=== PATIENT | female | born 1975 | race African-American/Black ===

== ENCOUNTER 2017-06-07 17:09 | Emergency (ER) | payer OTHER ==
[2017-06-07 18:05] LABS: BILIRUBIN,URINE NEGATIVE (NEG); CLARITY,URINE CLEAR; COLOR,URINE YELLOW; GLUCOSE,URINE >=1000 mg/dL (NEG); NITRITE,URINE NEGATIVE (NEG); PROTEIN,URINE 30 mg/dL (NEG-TRACE); UROBILINOGEN,URINE 0.2 mg/dL (0.2 mg/dL)
[2017-06-07 18:26] LABS: NEG OBC UR NEG; POS OBC UR POS; U PREG PATIENT NEGATIVE (NEG)
[2017-06-07 18:28] LABS: BACTERIA,URINE 0 /HPF (0-FEW); RBC,URINE 20-40 /HPF (0-2); SQUAMOUS EPITHELIAL CELL,UR FEW /LPF; WBC,URINE 0 /HPF (0-4)
[2017-06-07] MEDS: IV NORMAL SALINE 1000ML BAG 1,000 ML IV (19:09)
[2017-06-07] MEDS ORDERED: LIDOCAINE 1% PF 2 ML VIAL. (19:21)
[2017-06-07 19:27] LABS: NEG OBC SER NEG; POS OBC SER POS; PREG TEST PT QUAL NEGATIVE (NEG)
[2017-06-07 19:28] LABS: ANION GAP 10 (6-14); BLOOD UREA NITROGEN 9 mg/dL (7-20); BUN/CREATININE RATIO 11 (6-20); CALCIUM 8.5 mg/dL (8.5-10.1); CARBON DIOXIDE 28 mmol/L (21-32); CHLORIDE 100 mmol/L (98-107); CREATININE 0.8 mg/dL (0.6-1.0); GFR 96.6; GLUCOSE 269 mg/dL (70-99); POTASSIUM 3.9 mmol/L (3.5-5.1); SODIUM 138 mmol/L (136-145)
[2017-06-07 19:34] LABS: ALBUMIN 2.7 g/dL (3.4-5.0); ALBUMIN/GLOBULIN RATIO 0.6 (1.0-1.7); ALK PHOS 63 U/L (46-116); ALT (SGPT) 12 U/L (14-59); AST (SGOT) 14 U/L (15-37); C-REACTIVE PROTEIN 14.8 mg/L (0-3.3); TOTAL BILIRUBIN 0.1 mg/dL (0.2-1.0); TOTAL PROTEIN 7.2 g/dL (6.4-8.2)
[2017-06-07] MEDS: KETOROLAC 30 MG/ML INJ. IV (19:52)
[2017-06-07] MEDS: IOHEXOL 300 MG/ML 100ML VIAL. IV (20:06)
[2017-06-07] MEDS ORDERED: CONTRAST GIVEN MC (20:15)
[2017-06-07 20:16] LABS: ADD MAN DIFF? NO
[2017-06-07 20:18] LABS: BASO % 0 % (0-3); EOS # 0.1 x10^3/uL (0.0-0.7); EOS % 2 % (0-3); HEMATOCRIT 37.4 % (36.0-47.0); HEMOGLOBIN 12.2 g/dL (12.0-15.5); LYMPH # 1.8 x10^3/uL (1.0-4.8); LYMPH % 28 % (24-48); MEAN CORPUSCULAR HEMOGLOBIN 29 pg (25-35); MEAN CORPUSCULAR HGB CONC 33 g/dL (31-37); MEAN CORPUSCULAR VOLUME 89 fL (79-100); MONO # 0.6 x10^3/uL (0.0-1.1); MONO % 9 % (0-9); NEUT % 61 % (31-73); PLATELET COUNT 334 x10^3/uL (140-400); RED BLOOD COUNT 4.19 x10^6/uL (3.50-5.40); WHITE BLOOD COUNT 6.5 x10^3/uL (4.0-11.0)
[2017-06-07 21:20] LABS: SEDIMENTATION RATE 59 (0-25)
[2017-06-07] MEDS ORDERED: ONDANSETRON PF 4 MG/2 ML VIAL. IV (22:00)
[2017-06-07] MEDS ORDERED: MORPHINE SULFATE 2 MG/ML DISP.SYRIN. IV (22:00)
== END 2017-06-07 21:50 | disposition home or self-care (01) ==
LOC: ER 17:09
DX: N39.0 Urinary tract infection, site not specified (principal); J45.909 Unspecified asthma, uncomplicated; I10 Essential (primary) hypertension; E11.9 Type 2 diabetes mellitus without complications; Z98.890 Other specified postprocedural states
CPT/HCPCS: 36415; 74177; 80053; 81001; 81025; 84703; 85025; 85651; 86140; 96361; 96374; 99285-25; J1885; J7030; Q9967

== ENCOUNTER 2017-07-09 00:54 | Emergency (ER) | payer OTHER ==
[2017-07-09] MEDS: IV NORMAL SALINE 1000ML BAG 1,000 ML IV ×2 (01:41)
[2017-07-09] MEDS: HYDROmorphone 2 MG/ML VIAL IV ×4 (01:41→02:58)
[2017-07-09] MEDS ORDERED: CONTRAST GIVEN MC ×2 (01:45)
[2017-07-09 01:50] LABS: ADD MAN DIFF? NO
[2017-07-09 02:23] LABS: BASO % 0 % (0-3); EOS # 0.2 x10^3/uL (0.0-0.7); EOS % 2 % (0-3); HEMATOCRIT 36.9 % (36.0-47.0); HEMOGLOBIN 12.1 g/dL (12.0-15.5); LYMPH # 1.9 x10^3/uL (1.0-4.8); LYMPH % 24 % (24-48); MEAN CORPUSCULAR HEMOGLOBIN 29 pg (25-35); MEAN CORPUSCULAR HGB CONC 33 g/dL (31-37); MEAN CORPUSCULAR VOLUME 88 fL (79-100); MONO # 0.5 x10^3/uL (0.0-1.1); MONO % 6 % (0-9); NEUT # 5.2 x10^3uL (1.8-7.7); NEUT % 67 % (31-73); PLATELET COUNT 356 x10^3/uL (140-400); RED BLOOD COUNT 4.19 x10^6/uL (3.50-5.40); RED CELL DISTRIBUTION WIDTH 13.7 % (11.5-14.5); WHITE BLOOD COUNT 7.7 x10^3/uL (4.0-11.0)
[2017-07-09 02:25] LABS: ANION GAP 7 (6-14); BLOOD UREA NITROGEN 10 mg/dL (7-20); BUN/CREATININE RATIO 14 (6-20); CALCIUM 9.3 mg/dL (8.5-10.1); CARBON DIOXIDE 28 mmol/L (21-32); CHLORIDE 102 mmol/L (98-107); CREATININE 0.7 mg/dL (0.6-1.0); GFR 112.7; GLUCOSE 162 mg/dL (70-99); POTASSIUM 3.7 mmol/L (3.5-5.1); SODIUM 137 mmol/L (136-145)
[2017-07-09 02:30] LABS: ALBUMIN 3.1 g/dL (3.4-5.0); ALBUMIN/GLOBULIN RATIO 0.7 (1.0-1.7); ALK PHOS 66 U/L (46-116); ALT (SGPT) 10 U/L (14-59); AST (SGOT) 8 U/L (15-37); TOTAL BILIRUBIN 0.3 mg/dL (0.2-1.0); TOTAL PROTEIN 7.4 g/dL (6.4-8.2)
[2017-07-09 02:34] LABS: URINE HCG POC HCG NEGATIVE (Negative)
[2017-07-09] MEDS: IOHEXOL 300 MG/ML 100ML VIAL. IV ×2 (02:35)
[2017-07-09 02:38] LABS: BILIRUBIN,URINE SMALL (NEG); CLARITY,URINE CLEAR; COLOR,URINE RED; GLUCOSE,URINE NEGATIVE (NEG); PH,URINE 5.5; PROTEIN,URINE 100 mg/dL (NEG-TRACE)
[2017-07-09 02:44] LABS: BACTERIA,URINE FEW /HPF (0-FEW); NITRITE,URINE NEGATIVE (NEG); RBC,URINE TNTC /HPF (0-2); SQUAMOUS EPITHELIAL CELL,UR OCC /LPF; WBC,URINE OCC /HPF (0-4)
== END 2017-07-09 04:35 | disposition home or self-care (01) ==
LOC: ER 00:54
DX: R10.84 Generalized abdominal pain (principal); R10.2 Pelvic and perineal pain; I10 Essential (primary) hypertension; E11.9 Type 2 diabetes mellitus without complications; J45.909 Unspecified asthma, uncomplicated; Z98.890 Other specified postprocedural states
CPT/HCPCS: 36415; 51702; 74178; 80053; 81001; 81025; 85025; 87086; 96361; 96374; 96376; 99285-25; J1170; J7030; Q9967

== ENCOUNTER → 2018-02-01 | Outpatient (CLI) | payer OTHER ==
[2017-07-09 04:00] VITALS: BP 141/67
[~2018-02-01] MED LIST: CONTRAST GIVEN. MC PRN; CYCL5TAB PO; HYDR-2758 PO; IOHEXOL 240 MG/ML 50ML VIAL. PO ONE; IOHEXOL 300 MG/ML 100ML VIAL. IV ONE; PROAIR HFA8.5 GM INH
[2018-02-01 14:03] LABS: CREATININE 0.8 mg/dL (0.6-1.0); GFR 96.1
--- NOTE | 2018-02-01 15:36 | RAD ---
Examination: CT of the abdomen pelvis with oral and IV contrast HISTORY: History of bladder tumor removal, abnormal ultrasound of the kidneys, ureter and bladder COMPARISON: 07/09/2017 TECHNIQUE: Axial CT images of the abdomen pelvis were performed with oral and IV contrast. Coronal and sagittal reformats are performed. Exposure: One or more of the following individualized dose reduction techniques were utilized for this examination: 1. Automated exposure control 2. Adjustment of the mA and/or kV according to patient size 3. Use of iterative reconstruction technique Findings: The visualized bibasilar lungs are clear. No evidence of free air identified in the abdomen. The visualized liver, spleen, adrenals grossly appears unremarkable. The gallbladder is mildly distended. The stomach is mildly distended. The visualized pancreas grossly appears unremarkable. The small bowel is nondilated Feces and gas noted in the colon. The bilateral kidneys enhance symmetrically. No evidence of hydronephrosis. No evidence of significant retroperitoneal or pelvic lymphadenopathy identified In the urinary bladder is mildly distended. Intrauterine contraceptive device is identified. The uterus appears lobulated in the region of the fundus likely fibroid. In the right adnexal region there is a density measuring 5.9 cm abutting the right uterus could be exophytic fibroid however right ovarian pathology is not completely excluded. The caliber of the aorta grossly appears unremarkable No evidence of lytic bony destructive lesion IMPRESSION: 1. No acute intra-abdominal findings. 2.The uterus appears lobulated in the region of the fundus likely fibroid. In the right adnexal region there is a density measuring 5.9 cm abutting the right uterus could be exophytic fibroid however right ovarian pathology is not completely excluded. Recommend ultrasound pelvis or MRI for further evaluation. Electronically signed by: Jose Henning MD (02/01/2018 3:33 PM) [id number]
== END | disposition home or self-care (01) ==
LOC: CT 13:03
PROVIDERS: ATTEND Urology
DX: K31.89 Other diseases of stomach and duodenum (principal); I10 Essential (primary) hypertension; E11.9 Type 2 diabetes mellitus without complications; J45.909 Unspecified asthma, uncomplicated
CPT/HCPCS: 36415; 74177; 82565; Q9966; Q9967

== ENCOUNTER 2018-05-24 08:53 | Emergency (ER) | payer OTHER ==
[~2018-05-24] VITALS: Ht 157.5 cm; Wt 145.1 kg
[~2018-05-24 08:53] MED LIST changes: +ALBU2.5V8 INH; -CONTRAST GIVEN. MC PRN; -HYDR-2758 PO; +HYDR-2761 PO; -IOHEXOL 240 MG/ML 50ML VIAL. PO ONE; -IOHEXOL 300 MG/ML 100ML VIAL. IV ONE; -PROAIR HFA8.5 GM INH
[2018-05-24] MEDS ORDERED: IV NORMAL SALINE 1000ML BAG 1,000 ML IV ONE (10:15)
[2018-05-24] MEDS ORDERED: predniSONE 10 MG TABLET PO ONE (10:15)
[2018-05-24] MEDS ORDERED: IPRATRPIUM/ALBUTEROL 0.5/2.5MG 3 ML NEBU. NEB ONE (10:15)
--- NOTE | 2018-05-24 10:15 | EKG ---
[facility] [address] [place] [address] Test Date: 2018-05-24 Test Time: 10:12:36 Pat Name: NETTA KENT Department: Room: Gender: F [employer]: YAW : 1975 Requested By: KENYATTA KUO Order Number: [id number] Reading MD: Measurements Intervals [place] Rate: 85 P: 56 MT: 156 QRS: 15 QRSD: 72 T: 30 QT: 360 QTc: 433 Interpretive Statements SINUS RHYTHM NORMAL ECG Compared to ECG 02/12/2016 22:54:52 No significant changes
[2018-05-24 10:28] LABS: INFLUENZA A PATIENT NEGATIVE (NEGATIVE); INFLUENZA B PATIENT NEGATIVE (NEGATIVE)
[2018-05-24 10:29] LABS: BILIRUBIN,URINE NEGATIVE (NEG); CLARITY,URINE CLEAR; COLOR,URINE YELLOW; NITRITE,URINE NEGATIVE (NEG); PH,URINE 7.5; PROTEIN,URINE NEGATIVE (NEG-TRACE)
[2018-05-24 10:32] LABS: BASO % 0 % (0-3); EOS # 0.1 x10^3/uL (0.0-0.7); EOS % 3 % (0-3); HEMATOCRIT 37.1 % (36.0-47.0); HEMOGLOBIN 12.9 g/dL (12.0-15.5); LYMPH # 1.2 x10^3/uL (1.0-4.8); LYMPH % 23 % (24-48); MEAN CORPUSCULAR HEMOGLOBIN 31 pg (25-35); MEAN CORPUSCULAR HGB CONC 35 g/dL (31-37); MEAN CORPUSCULAR VOLUME 89 fL (79-100); MONO # 0.4 x10^3/uL (0.0-1.1); MONO % 7 % (0-9); NEUT # 3.5 x10^3uL (1.8-7.7); NEUT % 67 % (31-73); PLATELET COUNT 327 x10^3/uL (140-400); RED BLOOD COUNT 4.18 x10^6/uL (3.50-5.40); RED CELL DISTRIBUTION WIDTH 14.7 % (11.5-14.5); WHITE BLOOD COUNT 5.2 x10^3/uL (4.0-11.0)
[2018-05-24 10:38] LABS: SQUAMOUS EPITHELIAL CELL,UR FEW /LPF
[2018-05-24 10:39] LABS: BACTERIA,URINE 0 /HPF (0-FEW); RBC,URINE 0 /HPF (0-2); WBC,URINE OCC /HPF (0-4)
--- NOTE | 2018-05-24 10:43 | RAD ---
EXAM: PA and Lateral Views of the Chest DATE: 05/24/2018 10:11 AM INDICATION: COUGH COMPARISON: No Prior FINDINGS: The heart is not enlarged. Mediastinal and hilar contours are normal. No focal parenchymal airspace opacity. No pleural effusion or pneumothorax. IMPRESSION: 1. No radiographic evidence for acute cardiopulmonary process. Electronically signed by: Gareth Bowens MD (05/24/2018 10:39 AM) [facility]
[2018-05-24 10:49] LABS: CALCIUM 9.1 mg/dL (8.5-10.1); CREATININE 0.8 mg/dL (0.6-1.0); GFR 96.1; POTASSIUM 3.8 mmol/L (3.5-5.1)
[2018-05-24 10:54] LABS: ALBUMIN 3.1 g/dL (3.4-5.0); ALBUMIN/GLOBULIN RATIO 0.8 (1.0-1.7); MAGNESIUM 1.8 mg/dL (1.8-2.4); TOTAL BILIRUBIN 0.4 mg/dL (0.2-1.0); TOTAL PROTEIN 7.1 g/dL (6.4-8.2)
[2018-05-24] MEDS ORDERED: PRED50TA PO (11:48)
--- NOTE | 2018-05-24 11:48 | PHYS DOC ---
Past Medical History Past Medical History: Asthma, Diabetes-Type II, Hypertension, Other Additional Past Medical Histor: BACK PAIN Past Surgical History: , Other Additional Past Surgical Histo: R. ANKLE, Bladder tumor removal Alcohol Use: None Drug Use: None Adult General Chief Complaint Chief Complaint: MULTIPLE COMPLAINTS HPI HPI 42-year-old female presents to ER for complaints of shortness of air, nonproductive cough, and chest tightness. Patient reports history of asthma with this feeling similar to previous episodes of exacerbations. Patient denies being a daily smoker or other family members having cold-like symptoms. Patient reports symptoms started on Monday and have been gradually worsening with her using her inhaler at home more frequently. Patient reports she has had nausea denies any vomiting or diarrhea episodes. Patient states she has had generalized fatigue and body aches denies lethargy. Patient denies urinary symptoms. Patient denies recent travel. LMP last week. Review of Systems Review of Systems Constitutional: Denies fever or chills [] Eyes: Denies change in visual acuity, redness, or eye pain [] HENT: Denies nasal congestion or sore throat [] Respiratory: Denies cough or shortness of breath [] Cardiovascular: No additional information not addressed in HPI [] GI: Denies abdominal pain, nausea, vomiting, bloody stools or diarrhea [] : Denies dysuria or hematuria [] Musculoskeletal: Denies back pain or joint pain [] Integument: Denies rash or skin lesions [] Neurologic: Denies headache, focal weakness or sensory changes [] Endocrine: Denies polyuria or polydipsia [] All other systems were reviewed and found to be within normal limits, except as documented in this note. Current Medications Current Medications Current Medications Medications (Trade) Dose Ordered Sig/[facility] Start Time Stop Time Status Last Admin Dose Admin Albuterol/ Ipratropium (Duoneb) 3 ml 1X ONCE 05/24/18 10:15 05/24/18 10:16 DC Prednisone (Prednisone) 50 mg 1X ONCE 05/24/18 10:15 05/24/18 10:16 DC 05/24/18 10:28 50 MG Sodium Chloride 1,000 ml @ 1,000 mls/hr 1X ONCE 05/24/18 10:15 05/24/18 11:14 DC 05/24/18 10:28 1,000 MLS/HR Allergies Allergies Allergies Coded Allergies Type Severity Reaction Last Updated Verified No Known Drug Allergies 03/20/15 No Physical Exam Physical Exam Constitutional: Well developed, well nourished, no acute distress, non-toxic appearance. [] HENT: Normocephalic, atraumatic, bilateral external ears normal, oropharynx moist, no oral exudates, nose normal. [] Eyes: PERRLA, EOMI, conjunctiva normal, no discharge. [] Neck: Normal range of motion, no tenderness, supple, no stridor. [] Cardiovascular:Heart rate regular rhythm, no murmur [] Lungs & Thorax: Bilateral breath sounds clear to auscultation [] Abdomen: Bowel sounds normal, soft, no tenderness, no masses, no pulsatile masses. [] Skin: Warm, dry, no erythema, no rash. [] Back: No tenderness, no CVA tenderness. [] Extremities: No tenderness, no cyanosis, no clubbing, ROM intact, no edema. [] Neurologic: Alert and oriented X 3, normal motor function, normal sensory function, no focal deficits noted. [] Psychologic: Affect normal, judgement normal, mood normal. [] Current Patient Data Vital Signs Vital Signs Date Time Temp Pulse Resp B/P (MAP) Pulse Ox O2 Delivery O2 Flow Rate FiO2 05/24/18 10:40 99 Room Air 05/24/18 09:08 98.8 94 20 150/98 (115) 98.8 Lab Values Laboratory Tests Test 05/24/18 09:35 05/24/18 09:42 05/24/18 09:52 05/24/18 10:22 Urine Collection Type Unknown Urine Color Yellow Urine Clarity Clear Urine pH 7.5 Urine Specific [place] 1.025 Urine Protein Negative mg/dL (NEG-TRACE) Urine Glucose (UA) >=1000 mg/dL (NEG) Urine Ketones (Stick) Negative mg/dL (NEG) Urine Blood Negative (NEG) Urine Nitrite Negative (NEG) Urine Bilirubin Negative (NEG) Urine Urobilinogen Dipstick 1.0 mg/dL (0.2 mg/dL) Urine Leukocyte Esterase Negative (NEG) Urine RBC 0 /HPF (0-2) Urine WBC Occ /HPF (0-4) Urine Squamous Epithelial Cells Few /LPF Urine Bacteria 0 /HPF (0-FEW) Influenza Type A Antigen Negative (NEGATIVE) Influenza Type B Antigen Negative (NEGATIVE) POC Urine HCG, Qualitative Hcg negative (Negative) White Blood Count 5.2 x10^3/uL (4.0-11.0) Red Blood Count 4.18 x10^6/uL (3.50-5.40) Hemoglobin 12.9 g/dL (12.0-15.5) Hematocrit 37.1 % (36.0-47.0) Mean Corpuscular Volume 89 fL (79-100) Mean Corpuscular Hemoglobin 31 pg (25-35) Mean Corpuscular Hemoglobin Concent 35 g/dL (31-37) Red Cell Distribution Width 14.7 % (11.5-14.5) H Platelet Count 327 x10^3/uL (140-400) Neutrophils (%) (Auto) 67 % (31-73) Lymphocytes (%) (Auto) 23 % (24-48) L Monocytes (%) (Auto) 7 % (0-9) Eosinophils (%) (Auto) 3 % (0-3) Basophils (%) (Auto) 0 % (0-3) Neutrophils # (Auto) 3.5 x10^3uL (1.8-7.7) Lymphocytes # (Auto) 1.2 x10^3/uL (1.0-4.8) Monocytes # (Auto) 0.4 x10^3/uL (0.0-1.1) Eosinophils # (Auto) 0.1 x10^3/uL (0.0-0.7) Basophils # (Auto) 0.0 x10^3/uL (0.0-0.2) Sodium Level 137 mmol/L (136-145) Potassium Level 3.8 mmol/L (3.5-5.1) Chloride Level 100 mmol/L (98-107) Carbon Dioxide Level 29 mmol/L (21-32) Anion Gap 8 (6-14) Blood Urea Nitrogen 7 mg/dL (7-20) Creatinine 0.8 mg/dL (0.6-1.0) Estimated GFR (Cockcroft-Gault) 96.1 BUN/Creatinine Ratio 9 (6-20) Glucose Level 298 mg/dL (70-99) H Calcium Level 9.1 mg/dL (8.5-10.1) Magnesium Level 1.8 mg/dL (1.8-2.4) Total Bilirubin 0.4 mg/dL (0.2-1.0) Aspartate Amino Transferase (AST) 12 U/L (15-37) L Alanine Aminotransferase (ALT) 18 U/L (14-59) Alkaline Phosphatase 72 U/L (46-116) Troponin I Quantitative < 0.017 ng/mL (0.000-0.055) Total Protein 7.1 g/dL (6.4-8.2) Albumin 3.1 g/dL (3.4-5.0) L Albumin/Globulin Ratio 0.8 (1.0-1.7) L Laboratory Tests 05/24/18 10:22 Laboratory Tests 05/24/18 10:22 EKG EKG EKG obtained 05/24/18 at [address] Malcolm Sinus rhythm Rate 85 No STEMI Radiology/Procedures Radiology/Procedures PROCEDURE: CHEST PA & LATERAL EXAM: PA and Lateral Views of the Chest DATE: 05/24/2018 10:11 AM INDICATION: COUGH COMPARISON: No Prior FINDINGS: The heart is not enlarged. Mediastinal and hilar contours are normal. No focal parenchymal airspace opacity. No pleural effusion or pneumothorax. IMPRESSION: 1. No radiographic evidence for acute cardiopulmonary process. Electronically signed by: Gareth Ford MD (05/24/2018 10:39 AM) [facility] DICTATED and SIGNED BY: GARETH FORD MD DATE: 05/24/18 1038 Course & Med Decision Making Course & Med Decision Making Pertinent Labs and Imaging studies reviewed. (See chart for details) 1135: Patient was evaluated in the ER for complaints of flulike symptoms and exacerbation of her asthma. EKG with no acute ST elevation or STEMI and troponin was <0.017; chest x-ray with no acute findings. Flu swab negative. Test results were discussed with patient. Patient reports her symptoms much improved following dose of oral prednisone and DuoNeb treatment. Patient has increased air movement throughout all lung brown and right upper expiratory wheeze has subsided. Patient is speaking in full sentences and in no visible distress at this time. Patient was given IV fluid bolus and reports she is feeling less fatigued. Discussed with improved symptoms plan was for home discharge with prescription for prednisone and patient to continue use of inhaler as prescribed. Encourage patient to increase fluid intake. Patient to follow-up with her primary care physician if symptoms persist or with concerns. Patient is nontoxic in appearance. Patient comfortable with home discharge plan as discussed. Dragon Disclaimer Dragon Disclaimer This electronic medical record was generated, in whole or in part, using a voice recognition dictation system. Departure Departure Impression: Primary Impression: Asthma exacerbation Additional Impression: Flu-like symptoms Disposition: HOME, SELF-CARE Condition: STABLE Referrals: GUTIERREZ CROUCH (PCP) Patient Instructions: Asthma, Adult, Cough, Adult, Viral Syndrome Additional Instructions: Increase fluid intake. Tylenol and/or ibuprofen as needed for fever and pain as directed on container. Continue use of your inhaler as prescribed. Monitor your blood sugar while taking the steroid prescription. Follow-up with primary care physician if symptoms persist or with any concerns. Scripts Prednisone (PREDNISONE) 50 Mg Tablet 50 MG PO DAILY, #4 TAB 0 Refills Start 05/25/18 Prov: KENYATTA KUO APRN 05/24/18 Problem Qualifiers KENYATTA KUO APRN May 24, 2018 11:48
[2018-05-24 12:21] VITALS: BP 143/88
== END 2018-05-24 12:30 | disposition home or self-care (01) ==
LOC: ER 08:53
DX: J45.901 Unspecified asthma with (acute) exacerbation (principal); E11.9 Type 2 diabetes mellitus without complications; I10 Essential (primary) hypertension
CPT/HCPCS: 36415; 71046; 80053; 81001; 81025; 83735; 84484; 85025; 87804; 93005; 94640; 99284; J7030; J7512; J7620

== ENCOUNTER 2019-01-25 21:15 | Emergency (ER) | payer MEDICAID, OTHER ==
[~2019-01-25] VITALS: Ht 157.5 cm; Wt 108.9 kg
[2019-01-25 21:15] VITALS: BP 140/83
[~2019-01-25 21:15] MED LIST changes: +PRED50TA PO
--- NOTE | 2019-01-25 21:30 | PHYS DOC ---
Past Medical History Past Medical History: Asthma, Diabetes-Type II, Hypertension, Other Additional Past Medical Histor: BACK PAIN (TIERA,PEDRO Tello COREMAKER BENCH) Past Surgical History: , Other Additional Past Surgical Histo: R. ANKLE, Bladder tumor removal (PEDRO MOTT COREMAKER BENCH) Alcohol Use: None Drug Use: None (PEDRO MOTT COREMAKER BENCH) Adult General Chief Complaint Chief Complaint: PAIN ON URINATION [facility] HPI Patient is a 43 year old female who presents with 1-1/2 weeks of low mid abdominal pain, burning with urination and urinary frequency. Patient states she's had some nausea but no vomiting. Patient denies fever, chest pain, short ness of air, dizziness, vomiting, blood in her urine, diarrhea. (PEDRO MOTT COREMAKER BENCH) Review of Systems Review of Systems Constitutional: Denies fever or chills [] Respiratory: Denies cough or shortness of breath [] Cardiovascular: No additional information not addressed in HPI [] GI: Low mid ,that will wrap around to her lower back at times,abdominal pain, nausea, denies vomiting, bloody stools or diarrhea [] : dysuria or denies hematuria [] Musculoskeletal: Denies back pain or joint pain [] All other systems were reviewed and found to be within normal limits, except as documented in this note. (PEDRO MOTT COREMAKER BENCH) Allergies Allergies Allergies Coded Allergies Type Severity Reaction Last Updated Verified No Known Drug Allergies 03/20/15 No (MIGNON LUZ MD) Physical Exam Physical Exam Constitutional: Well developed, well nourished, no acute distress, non-toxic appearance. [] Cardiovascular:Heart rate regular rhythm, no murmur [] Lungs & Thorax: Bilateral breath sounds clear to auscultation [] Abdomen: Bowel sounds normal, soft, low mid tenderness, no masses, no pulsatile masses. [] Skin: Warm, dry, no erythema, no rash. [] Back: No tenderness, no CVA tenderness. [] Neurologic: Alert and oriented X 3, normal motor function, normal sensory function, no focal deficits noted. [] Psychologic: Affect normal, judgement normal, mood normal. [] [facility]ENCH) Current Patient Data Vital Signs Vital Signs Date Time Temp Pulse Resp B/P (MAP) Pulse Ox O2 Delivery O2 Flow Rate FiO2 01/25/19 21:15 97.9 95 20 140/83 (102) 100 Room Air 97.9 (MIGNON LUZ MD) Lab Values Laboratory Tests Test 01/25/19 21:20 01/25/19 21:23 01/25/19 21:52 Urine Collection Type Unknown Urine Color Yellow Urine Clarity Clear Urine pH 5.5 Urine Specific [place] >=1.030 Urine Protein 30 mg/dL (NEG-TRACE) Urine Glucose (UA) 500 mg/dL (NEG) Urine Ketones (Stick) 15 mg/dL (NEG) Urine Blood Negative (NEG) Urine Nitrite Negative (NEG) Urine Bilirubin Small (NEG) Urine Urobilinogen Dipstick 1.0 mg/dL (0.2 mg/dL) Urine Leukocyte Esterase Negative (NEG) Urine RBC 1-2 /HPF (0-2) Urine WBC 1-4 /HPF (0-4) Urine Squamous Epithelial Cells Mod /LPF Urine Bacteria Few /HPF (0-FEW) Urine Mucus Marked /LPF POC Urine HCG, Qualitative Hcg negative (Negative) Glucose (Fingerstick) 159 mg/dL (70-99) H (MIGNON LUZ MD) Lab Values Laboratory Tests Test 01/25/19 21:20 01/25/19 21:23 01/25/19 21:52 Urine Collection Type Unknown Urine Color Yellow Urine Clarity Clear Urine pH 5.5 Urine Specific [place] >=1.030 Urine Protein 30 mg/dL (NEG-TRACE) Urine Glucose (UA) 500 mg/dL (NEG) Urine Ketones (Stick) 15 mg/dL (NEG) Urine Blood Negative (NEG) Urine Nitrite Negative (NEG) Urine Bilirubin Small (NEG) Urine Urobilinogen Dipstick 1.0 mg/dL (0.2 mg/dL) Urine Leukocyte Esterase Negative (NEG) Urine RBC 1-2 /HPF (0-2) Urine WBC 1-4 /HPF (0-4) Urine Squamous Epithelial Cells Mod /LPF Urine Bacteria Few /HPF (0-FEW) Urine Mucus Marked /LPF POC Urine HCG, Qualitative Hcg negative (Negative) Glucose (Fingerstick) 159 mg/dL (70-99) H (PEDRO MOTT APRN) EKG EKG [] (PEDRO MOTT APRN) Radiology/Procedures Radiology/Procedures [] (PEDRO MOTT APRN) Course & Med Decision Making Course & Med Decision Making Patient is a 43 year old female who presents with 1-1/2 weeks of low mid abdominal pain, burning with urination and urinary frequency. Patient states she's had some nausea but no vomiting. Patient denies fever, chest pain, shortness of air, dizziness, vomiting, blood in her urine, diarrhea. Alert and oriented. Speaks in full clear sentences. Skin is pink warm and dry. Lungs are clear to auscultation all lobes. Abdomen is soft and tender to mid lower abdomen. No CVA tenderness. Afebrile. Ambulatory with steady gait. Urinalysis is border line infected. Patient is treated with antibiotics given her diabetes history. (PEDRO MOTT APRN) Course & Med Decision Making Staff Physician Addendum: I was working in the ER during the course of this patient's visit. I was available for consultation as needed, but I was not directly involved in the care of this patient. (MIGNON LUZ MD) Dragon Disclaimer Dragon Disclaimer This electronic medical record was generated, in whole or in part, using a voice recognition dictation system. (PEDRO MOTT APRN) Departure Departure Impression: Primary Impression: Dysuria Disposition: 01 HOME, SELF-CARE Condition: STABLE Referrals: GUTIERREZ CROUCH (PCP) Patient Instructions: Urinary Tract Infection Additional Instructions: Follow up with primary care doctor if not getting better. Drink plenty of fluids. Scripts Ondansetron (ONDANSETRON ODT) 4 Mg Tab.rapdis 1 TAB PO PRN Q6-8HRS, #16 TAB Prov: PEDRO MOTT APRN 01/25/19 Cephalexin (KEFLEX) 500 Mg Capsule 1 CAP PO BID, #14 CAP Prov: PEDRO MOTT APRN 01/25/19 PEDRO MOTT APRN Jan 25, 2019 21:30 MIGNON LUZ MD Jan 26, 2019 05:55
[2019-01-25 21:31] LABS: BILIRUBIN,URINE SMALL (NEG); CLARITY,URINE CLEAR; COLOR,URINE YELLOW; NITRITE,URINE NEGATIVE (NEG); PH,URINE 5.5; PROTEIN,URINE 30 mg/dL (NEG-TRACE)
[2019-01-25 21:38] LABS: SQUAMOUS EPITHELIAL CELL,UR MOD /LPF
[2019-01-25 21:39] LABS: BACTERIA,URINE FEW /HPF (0-FEW)
[2019-01-25] MEDS ORDERED: CEPH-264 PO (21:50)
[2019-01-25] MEDS ORDERED: ONDA4TAB12 PO (21:50)
== END 2019-01-25 21:58 | disposition home or self-care (01) ==
LOC: ER 21:15
DX: R30.0 Dysuria (principal); R10.30 Lower abdominal pain, unspecified; R11.0 Nausea; J45.909 Unspecified asthma, uncomplicated; I10 Essential (primary) hypertension; E11.9 Type 2 diabetes mellitus without complications; Z98.890 Other specified postprocedural states
CPT/HCPCS: 81001; 81025; 82962; 99283; 99284